=== PATIENT | female | born 1985 | race Caucasian/White ===

== ENCOUNTER 2018-09-14 12:58 | Inpatient (IN) | payer OTHER ==
[~2018-09-14] VITALS: Ht 157.5 cm; Wt 71.7 kg
[2018-09-17 20:00] VITALS: BP 106/61
[2018-09-17] MEDS ORDERED: RINGERS SOLUTION,LACTATED 1,000 ML IV ONE ×2 (20:16→20:23)
[2018-09-17] MEDS ORDERED: OXYTOCIN 30 UNITS/LACT RINGERS 500 ML IV ONE (20:23)
[2018-09-17] MEDS ORDERED: CITRIC ACID/SODIUM CITRATE 30 ML SOLUTION UDCUP PO PRN (20:30)
[2018-09-17] MEDS ORDERED: LIDOCAINE/PF 1% 30 ML VIAL INJ PRN (20:30)
[2018-09-17] MEDS ORDERED: METOCLOPRAMIDE HCL 5 MG/ML 2 ML VIAL IVP PRN (20:30)
[2018-09-17] MEDS ORDERED: DOCO200C5 PO (20:32)
[2018-09-17 20:57] LABS: BASOPHILS % (AUTO) 0.5 % (0.0-2.0); EOSINOPHILS % (AUTO) 0.4 % (1.0-6.0); HEMATOCRIT 27.8 % (36-46); LYMPHOCYTES # (AUTO) 1.3 K/uL (1.0-4.8); LYMPHOCYTES % (AUTO) 13.8 % (22.0-44.0); MEAN CORPUSCULAR HEMOGLOBIN 23.2 pg (26.0-34.0); MEAN CORPUSCULAR HGB CONC 32.4 G/dL (31.0-37.0); MEAN CORPUSCULAR VOLUME 72 fL (80-100); MONOCYTES # (AUTO) 0.8 K/uL (0.1-1.0); MONOCYTES % (AUTO) 8.4 % (2.0-9.0); NEUTROPHILS # (AUTO) 7.2 K/uL (1.8-7.7); NEUTROPHILS % (AUTO) 76.9 % (40.0-70.0); PLATELET COUNT (AUTO)-OB 257 K/uL (150-450); RED BLOOD CELL COUNT(AUTO) 3.89 MIL/uL (4.00-5.20); RED CELL DISTRIBUTION WIDTH 18.7 % (11.5-14.5)
[2018-09-17] MEDS: RINGERS SOLUTION,LACTATED 1,000 ML IV SCH (21:26)
[2018-09-17] MEDS ORDERED: MISOPROSTOL 25 MCG TABLET PO SCH (22:00)
[2018-09-17 22:07] LABS: PLATELET MORPHOLOGY COMMENT LARGE PLTS PRESENT
[2018-09-18] MEDS: RINGERS SOLUTION,LACTATED 1,000 ML IV SCH ×3 (02:29→22:18)
[2018-09-18] MEDS: FentaNYL CITRATE-PF 100 MCG/2 ML VIAL IVP PRN ×2 (08:01→08:57)
[2018-09-18] MEDS ORDERED: LIDOCAINE/PF 2% 5 ML VIAL ONE (09:40)
[2018-09-18] MEDS ORDERED: ROPIVACAINE HCL/PF 0.2% 100 ML ED ONE (09:41)
[2018-09-18] MEDS ORDERED: ONDANSETRON HCL 4 MG/2 ML VIAL IVP PRN ×2 (10:00→22:30)
[2018-09-18] MEDS ORDERED: ROPIVACAINE HCL/PF 0.2% 100 ML ED PRN (10:00)
[2018-09-18] MEDS ORDERED: NALBUPHINE HCL 10 MG/ML VIAL IVP PRN (10:00)
[2018-09-18] MEDS ORDERED: DiphenhydrAMINE HCL 50 MG/ML VIAL IVP PRN ×2 (10:00→22:30)
[2018-09-18] MEDS ORDERED: OXYTOCIN 30 UNITS/LACT RINGERS 500 ML IV PRN ×2 (16:17)
[2018-09-18] MEDS: AMPICILLIN SODIUM 2 GM/NS 100 ML IV SCH ×2 (16:39→22:19)
[2018-09-18] MEDS ORDERED: ACETAMINOPHEN 500 MG TABLET PO SCH (17:30)
[2018-09-18] MEDS ORDERED: DEXTROSE 5% IV SCH (18:00)
[2018-09-18] MEDS ORDERED: GENTAMICIN SULFATE IV SCH (18:00)
[2018-09-18] MEDS ORDERED: WATER IV SCH (18:00)
[2018-09-18] MEDS ORDERED: FentaNYL CITRATE-PF 100 MCG/2 ML VIAL IVP PRN ×2 (22:30)
[2018-09-18] MEDS ORDERED: OxyCODONE HCL/ACETAMINOPHEN 5-325 MG TABLET PO PRN (22:30)
[2018-09-18] MEDS ORDERED: NALOXONE HCL 0.4 MG/ML VIAL IVP PRN (22:30)
[2018-09-18] MEDS ORDERED: MEPERIDINE-PF 25 MG/ML VIAL IVP PRN (22:30)
[2018-09-18] MEDS ORDERED: HYDROmorphone 2 MG/ML SYRINGE IVP PRN (22:30)
[2018-09-18] MEDS ORDERED: MIDAZOLAM HCL 2 MG/2 ML VIAL ONE (23:01)
[2018-09-18] MEDS ORDERED: MORPHINE SULFATE/PF 1 MG/ML 10 ML AMP ONE (23:01)
[2018-09-18] MEDS ORDERED: GUM MASTIC/STORAX/MSAL/ALCOHOL LIQUID 0.67 ML VIAL TP ONE (23:16)
[2018-09-18] MEDS ORDERED: METHYLERGONOVINE MALEATE 0.2 MG/ML VIAL ONE (23:17)
[2018-09-19] MEDS ORDERED: DEXTROSE 5%-0.45% SODIUM CHL 1,000 ML IV SCH (00:16)
[2018-09-19] MEDS ORDERED: OXYTOCIN 20 UNITS/LACT RINGERS 1,000 ML IV SCH (00:16)
[2018-09-19] MEDS ORDERED: GLYCERIN/WITCH HAZEL LEAF 40 PADS JAR TP PRN (00:30)
[2018-09-19] MEDS ORDERED: OxyCODONE HCL/ACETAMINOPHEN 5-325 MG TABLET PO PRN ×2 (00:30)
[2018-09-19] MEDS: KETOROLAC TROMETHAMINE 30 MG/ML VIAL IVP SCH ×3 (06:05→22:00)
[2018-09-19 06:29] LABS: BASOPHILS % (AUTO) 0.4 % (0.0-2.0); EOSINOPHILS % (AUTO) 0 % (1.0-6.0); HEMATOCRIT 31.1 % (36-46); HEMOGLOBIN 9.9 g/dL (12.0-16.0); LYMPHOCYTES # (AUTO) 1.1 K/uL (1.0-4.8); LYMPHOCYTES % (AUTO) 4.9 % (22.0-44.0); MEAN CORPUSCULAR HEMOGLOBIN 22.6 pg (26.0-34.0); MEAN CORPUSCULAR HGB CONC 31.9 G/dL (31.0-37.0); MEAN CORPUSCULAR VOLUME 71 fL (80-100); MONOCYTES # (AUTO) 1.1 K/uL (0.1-1.0); NEUTROPHILS # (AUTO) 20.4 K/uL (1.8-7.7); PLATELET COUNT (AUTO)-OB 295 K/uL (150-450); RED BLOOD CELL COUNT(AUTO) 4.38 MIL/uL (4.00-5.20); RED CELL DISTRIBUTION WIDTH 18.8 % (11.5-14.5)
[2018-09-19 06:31] LABS: NEUTROPHILS % (AUTO) 89.7 % (40.0-70.0)
[2018-09-19] MEDS ORDERED: OXYGEN THERAPY IH SCH ×2 (08:00)
[2018-09-20] MEDS: IBUPROFEN 600 MG TABLET PO PRN ×3 (04:04→16:35)
[2018-09-20] MEDS ORDERED: KETOROLAC TROMETHAMINE 60 MG/2 ML VIAL IM ONE (05:43)
[2018-09-20] MEDS ORDERED: OXYTOCIN 10 UNITS/ML VIAL IM ONE (05:43)
[2018-09-20] MEDS ORDERED: DEXAMETHASONE SOD PHOS 4 MG/ML VIAL IVP ONE (05:43)
[2018-09-20] MEDS ORDERED: ONDANSETRON HCL 4 MG/2 ML VIAL IVP ONE (05:43)
[2018-09-20] MEDS ORDERED: PROPOFOL 1% 20 ML VIAL IVP ONE (05:43)
[2018-09-20] MEDS ORDERED: LIDOCAINE/PF 2% 5 ML VIAL IM ONE (05:43)
[2018-09-20 08:38] LABS: BASOPHILS % (AUTO) 0.5 % (0.0-2.0); EOSINOPHILS % (AUTO) 0.7 % (1.0-6.0); HEMATOCRIT 23.6 % (36-46); HEMOGLOBIN 7.8 g/dL (12.0-16.0); LYMPHOCYTES # (AUTO) 0.8 K/uL (1.0-4.8); LYMPHOCYTES % (AUTO) 8.8 % (22.0-44.0); MEAN CORPUSCULAR HEMOGLOBIN 23.4 pg (26.0-34.0); MEAN CORPUSCULAR HGB CONC 32.9 G/dL (31.0-37.0); MEAN CORPUSCULAR VOLUME 71 fL (80-100); MONOCYTES # (AUTO) 0.6 K/uL (0.1-1.0); MONOCYTES % (AUTO) 6.7 % (2.0-9.0); NEUTROPHILS # (AUTO) 7.7 K/uL (1.8-7.7); NEUTROPHILS % (AUTO) 83.3 % (40.0-70.0); PLATELET COUNT (AUTO)-OB 235 K/uL (150-450); RED BLOOD CELL COUNT(AUTO) 3.32 MIL/uL (4.00-5.20); RED CELL DISTRIBUTION WIDTH 18.7 % (11.5-14.5)
[2018-09-20] MEDS ORDERED: MAGNESIUM HYDROXIDE SUSPENSION 30 ML UDCUP PO SCH (09:00)
[2018-09-20] MEDS ORDERED: IBUP-2071 PO (16:56)
[2018-09-20] MEDS ORDERED: DSS100 PO (16:57)
[2018-09-20] MEDS ORDERED: FERR-89 PO (16:57)
[2018-09-20] MEDS ORDERED: PERCT PO (16:58)
== END 2018-09-20 20:20 | disposition home or self-care (01) | DRG 788 ==
LOC: OBSVTOIN 09-17 19:08 → 4S 09-17 19:08
PROVIDERS: ADMIT Obstetrics & Gynecology; ATTEND Obstetrics & Gynecology
PROC: 10D00Z1 Extraction of Products of Conception, Low, Open Approach (ICD-10-PCS; principal; 2018-09-18)
PROC: 3E0P7VZ Introduction of Hormone into Female Reproductive, Via Natural or Artificial Opening (ICD-10-PCS; 2018-09-18)
DX: O48.0 Post-term pregnancy (principal); O62.2 Other uterine inertia; Z3A.41 41 weeks gestation of pregnancy; Z37.0 Single live birth; O77.0 Labor and delivery complicated by meconium in amniotic fluid; O64.0XX0 Obstructed labor due to incomplete rotation of fetal head, not applicable or unspecified
CPT/HCPCS: 86850; 86900; 86901; 87081; J0290; J0690; J1100; J1580; J1885; J2210; J2250; J2405; J2590; J2704; J2765; J2795; J3010; J3490; J7060; J7120

== ENCOUNTER 2020-10-20 08:50 | Observation (INO) | payer OTHER ==
[~2020-10-20] VITALS: Ht 158 cm; Wt 71.2 kg
[~2020-10-20 08:50] MED LIST: DOCO200C5 PO; DSS100 PO; FERR-89 PO; IBUP-2071 PO; PERCT PO
[2020-10-20 09:31] VITALS: BP 105/59
[2020-10-20] MEDS ORDERED: PREN-217 PO (09:33)
[2020-10-20 09:59] LABS: COVID AG,FIA SOURCE NASOPHARYNGEAL
== END 2020-10-20 11:50 | disposition home or self-care (01) ==
LOC: 4S 08:50
PROVIDERS: ADMIT Obstetrics & Gynecology; ATTEND Obstetrics & Gynecology
DX: Z34.93 Encounter for supervision of normal pregnancy, unspecified, third trimester (principal); Z20.828 Contact with and (suspected) exposure to other viral communicable diseases; Z3A.38 38 weeks gestation of pregnancy
CPT/HCPCS: 59025; 76811; 87426; 96360; 96361; 99219

== ENCOUNTER 2020-10-24 12:20 | Observation (INO) | payer OTHER ==
[~2020-10-24] VITALS: Ht 156 cm; Wt 71.2 kg
[~2020-10-24 12:20] MED LIST changes: +PREN-217 PO
[2020-10-24 13:24] LABS: COVID AG,FIA SOURCE NASOPHARYNGEAL
== END 2020-10-24 12:50 | disposition home or self-care (01) ==
LOC: 4S 12:20
PROVIDERS: ADMIT Obstetrics & Gynecology; ATTEND Obstetrics & Gynecology
DX: Z34.93 Encounter for supervision of normal pregnancy, unspecified, third trimester (principal); Z20.828 Contact with and (suspected) exposure to other viral communicable diseases; Z3A.39 39 weeks gestation of pregnancy
CPT/HCPCS: 87426; 99219

== ENCOUNTER 2020-10-25 09:55 | Inpatient (IN) | payer OTHER ==
[~2020-10-25] VITALS: Ht 158 cm; Wt 156.0 kg
[2020-10-25] MEDS ORDERED: METOCLOPRAMIDE HCL 5 MG/ML 2 ML VIAL IVP ONE (10:00)
[2020-10-25] MEDS ORDERED: RINGERS SOLUTION,LACTATED 1,000 ML IV ONE ×3 (10:00→15:39)
[2020-10-25] MEDS ORDERED: CITRIC ACID/SODIUM CITRATE 30 ML SOLUTION UDCUP PO ONE (10:00)
[2020-10-25 11:34] LABS: BASOPHILS % (AUTO) 0.3 % (0.0-2.0); EOSINOPHILS % (AUTO) 0.7 % (1.0-6.0); HEMATOCRIT 31.3 % (36-46); HEMOGLOBIN 10.1 g/dL (12.0-16.0); LYMPHOCYTES # (AUTO) 1.1 K/uL (1.0-4.8); LYMPHOCYTES % (AUTO) 11.2 % (22.0-44.0); MEAN CORPUSCULAR HEMOGLOBIN 25.3 pg (26.0-34.0); MEAN CORPUSCULAR HGB CONC 32.2 G/dL (31.0-37.0); MEAN CORPUSCULAR VOLUME 79 fL (80-100); MONOCYTES # (AUTO) 0.6 K/uL (0.1-1.0); MONOCYTES % (AUTO) 5.8 % (2.0-9.0); NEUTROPHILS # (AUTO) 7.8 K/uL (1.8-7.7); PLATELET COUNT (AUTO) 223 K/uL (150-450); RED BLOOD CELL COUNT(AUTO) 3.99 MIL/uL (4.00-5.20); RED CELL DISTRIBUTION WIDTH 16.8 % (11.5-14.5)
[2020-10-25] MEDS ORDERED: SODIUM CHLORIDE 0.9% 0 ML ONE ×2 (11:37→11:38)
[2020-10-25] MEDS ORDERED: TRIAMCINOLONE ACETONIDE 40 MG/ML VIAL ONE (11:39)
[2020-10-25] MEDS ORDERED: SODIUM CHLORIDE 0.9% 1,000 ML ONE (11:59)
[2020-10-25] MEDS ORDERED: BUPIVACAINE HCL/DEX-WATER/PF 0.75% 2 ML AMP ITH ONE (11:59)
[2020-10-25] MEDS ORDERED: TRIAMCINOLONE ACETONIDE 40 MG/ML VIAL IM ONE (12:30)
[2020-10-25] MEDS ORDERED: HYDROmorphone 2 MG/ML SYRINGE IVP PRN (13:15)
[2020-10-25] MEDS ORDERED: FentaNYL CITRATE-PF 100 MCG/2 ML VIAL IVP PRN ×2 (13:15→14:45)
[2020-10-25] MEDS ORDERED: MEPERIDINE-PF 25 MG/ML VIAL IVP PRN (13:15)
[2020-10-25] MEDS ORDERED: LANOLIN 7 GM OINTMENT TP PRN (14:00)
[2020-10-25] MEDS ORDERED: OXYTOCIN 30 UNITS/LACT RINGERS 500 ML IV ONE (14:00)
[2020-10-25] MEDS ORDERED: OxyCODONE HCL/ACETAMINOPHEN 5-325 MG TABLET PO PRN ×2 (14:00)
[2020-10-25 14:17] VITALS: BP 107/63
[2020-10-25] MEDS ORDERED: DiphenhydrAMINE HCL 50 MG/ML VIAL IVP PRN (14:45)
[2020-10-25] MEDS ORDERED: ONDANSETRON HCL 4 MG/2 ML VIAL IVP PRN (14:45)
[2020-10-25] MEDS ORDERED: MORPHINE SULFATE 10 MG/ML SYRINGE IVP PRN (14:45)
[2020-10-25] MEDS ORDERED: NALBUPHINE HCL 10 MG/ML VIAL IVP PRN ×2 (14:45)
[2020-10-25] MEDS ORDERED: NALOXONE HCL 0.4 MG/ML VIAL IVP PRN (14:45)
[2020-10-25] MEDS: RINGERS SOLUTION,LACTATED 1,000 ML IV SCH (15:41)
[2020-10-25] MEDS ORDERED: ACETAMINOPHEN 1000 MG/ISO-OSM 100 ML IV ONE (15:43)
[2020-10-25] MEDS: ACETAMINOPHEN 1000 MG/ISO-OSM 100 ML IV SCH ×2 (15:46→23:52)
[2020-10-25] MEDS ORDERED: OXYGEN THERAPY IH SCH ×3 (20:00)
[2020-10-25] MEDS: MAGNESIUM HYDROXIDE SUSPENSION 30 ML UDCUP PO SCH (21:06)
[2020-10-25] MEDS: KETOROLAC TROMETHAMINE 30 MG/ML VIAL IVP SCH (21:07)
[2020-10-26] MEDS: RINGERS SOLUTION,LACTATED 1,000 ML IV SCH (00:53)
[2020-10-26] MEDS: KETOROLAC TROMETHAMINE 30 MG/ML VIAL IVP SCH (03:19)
[2020-10-26] MEDS ORDERED: KETOROLAC TROMETHAMINE 60 MG/2 ML VIAL IM ONE (06:24)
[2020-10-26] MEDS ORDERED: ONDANSETRON HCL 4 MG/2 ML VIAL IVP ONE (06:24)
[2020-10-26] MEDS ORDERED: FentaNYL CITRATE-PF 100 MCG/2 ML VIAL IVP ONE (06:24)
[2020-10-26] MEDS ORDERED: OXYTOCIN 10 UNITS/ML VIAL IM ONE (06:24)
[2020-10-26] MEDS ORDERED: EPHEDrine SULFATE 50 MG/ML VIAL IM ONE (06:24)
[2020-10-26] MEDS ORDERED: MORPHINE SULFATE/PF 0.5 MG/ML 10 ML AMP IVP ONE (06:24)
[2020-10-26] MEDS ORDERED: 0.9% SODIUM CHLORIDE 10 ML VIAL IVP ONE (06:24)
[2020-10-26 06:29] LABS: BASOPHILS % (AUTO) 0.2 % (0.0-2.0); EOSINOPHILS % (AUTO) 0.1 % (1.0-6.0); HEMATOCRIT 26.5 % (36-46); HEMOGLOBIN 8.6 g/dL (12.0-16.0); LYMPHOCYTES # (AUTO) 0.9 K/uL (1.0-4.8); LYMPHOCYTES % (AUTO) 11.6 % (22.0-44.0); MEAN CORPUSCULAR HEMOGLOBIN 25.4 pg (26.0-34.0); MEAN CORPUSCULAR HGB CONC 32.3 G/dL (31.0-37.0); MEAN CORPUSCULAR VOLUME 79 fL (80-100); MONOCYTES # (AUTO) 0.6 K/uL (0.1-1.0); MONOCYTES % (AUTO) 7.2 % (2.0-9.0); NEUTROPHILS # (AUTO) 6.4 K/uL (1.8-7.7); NEUTROPHILS % (AUTO) 80.9 % (40.0-70.0); PLATELET COUNT (AUTO)-OB 219 K/uL (150-450); RED BLOOD CELL COUNT(AUTO) 3.38 MIL/uL (4.00-5.20); RED CELL DISTRIBUTION WIDTH 16.5 % (11.5-14.5)
[2020-10-26] MEDS: MAGNESIUM HYDROXIDE SUSPENSION 30 ML UDCUP PO SCH ×2 (08:49→20:24)
[2020-10-26] MEDS ORDERED: IRON SUCROSE COMPLEX 200 MG in SODIUM CHLORIDE 0.9% 100 ML IV ONE (10:00)
[2020-10-26] MEDS: IBUPROFEN 800 MG TABLET PO PRN (15:09)
[2020-10-27] MEDS: IBUPROFEN 800 MG TABLET PO PRN ×2 (06:29→11:54)
[2020-10-27] MEDS: MAGNESIUM HYDROXIDE SUSPENSION 30 ML UDCUP PO SCH (09:00)
[2020-10-27] MEDS ORDERED: ACET-2865 PO (11:40)
== END 2020-10-27 12:55 | disposition home or self-care (01) | DRG 788 ==
LOC: 4S 09:55 → INTOOBSV 09:55 → NSY 09:55 → OBSVTOIN 09:55 → UNDOADMOB 09:55
PROVIDERS: ADMIT Obstetrics & Gynecology; ATTEND Obstetrics & Gynecology
PROC: 10D00Z1 Extraction of Products of Conception, Low, Open Approach (ICD-10-PCS; principal; 2020-10-25)
DX: O34.211 Maternal care for low transverse scar from previous cesarean delivery (principal); Z20.828 Contact with and (suspected) exposure to other viral communicable diseases; Z3A.39 39 weeks gestation of pregnancy; Z37.0 Single live birth
CPT/HCPCS: 86592; 86762; 86850; 86900; 86901; 87081; 87340; J0131; J0690; J1756; J1885; J2274; J2405; J2590; J2765; J3010; J3301; J3490; J7030; J7050; J7120